=== PATIENT | female | born 1965 | race Caucasian/White ===

== ENCOUNTER 2019-04-14 09:48 | Outpatient (CLI) | payer BC ==
--- NOTE | 2019-04-14 11:39 | RAD ---
RADIOGRAPH LEFT HIP 2 VIEWS: Date: 04/14/19 HISTORY: 54-year-old female with left hip pain. FINDINGS: No femoral head collapse. Minimal irregularity of superior articular surface of femoral head. No sign ificant joint space narrowing. Mild bony hypertrophy of acetabular roof. No subcapital osteophytes. N o fracture or dislocation. Normal appearance of left SI joint. Moderate degenerative changes at symph ysis pubis. IMPRESSION: 1. Mild osteoarthrosis of left hip. 2. No fracture. POS: CET
== END 2019-04-14 09:49 | disposition home or self-care (01) ==
LOC: TBSIIMAG 09:48
PROVIDERS: ATTEND Neurological Surgery
DX: R29.898 Other symptoms and signs involving the musculoskeletal system (principal); M16.12 Unilateral primary osteoarthritis, left hip